=== PATIENT | female | born 1995 ===

== ENCOUNTER 2016-10-31 15:18 | Emergency (ER) | payer OTHER ==
[2016-10-31 15:28] VITALS: BP 108/68; PULSE 83; RESP 16; TEMP 98.1; O2SAT 98
[2016-10-31] MEDS ORDERED: Sodium Chloride 0.9% 1,000 ML IV STA (15:41)
--- NOTE | 2016-10-31 15:43 | ED PDOC ---
HPI: Female Pain Time Seen by Provider: 10/31/16 15:40 Chief Complaint (Nursing): Female Genitourinary Chief Complaint (Provider): vaginal bleeding History Per: Patient Additional Complaint(s): Patient states she has had prolonged vaginal bleeding on and off for about 2 months. Patient states she feels fatigued and has headache. Patient denies any fever or chills. Patient denies any syncopal episodes. Patient has control implant in her right arm for over a year and she states she has always had an irregular cycle. She states she is going through about 3 pads per day. Past Medical History Reviewed: Historical Data, Nursing Documentation, Vital Signs Vital Signs: Last Vital Signs Temp 98.1 F 10/31/16 15:25 Pulse 83 10/31/16 15:25 Resp 16 10/31/16 15:25 BP 108/68 10/31/16 15:25 Pulse Ox 98 10/31/16 15:25 - Medical History PMH: No Chronic Diseases - Surgical History Surgical History: Hernia Repair ((at 5 years old)), Tonsillectomy Other surgeries: eye surgery - Family History Family History: States: No Known Family Hx - Living Arrangements Living Arrangements: With Family - Social History Current smoker - smoking cessation education provided: No Alcohol: None Drugs: Denies - Home Medications Home Medications: Ambulatory Orders Medication Instructions Recorded Ibuprofen [Motrin] 600 mg PO Q6 PRN #15 tab 09/08/16 - Allergies Allergies/Adverse Reactions: Allergies Allergy/AdvReac Type Severity Reaction Status Date / Time No Known Allergies Allergy Verified 09/08/16 19:15 Review of Systems ROS Statement: Except As Marked, All Systems Reviewed And Found Negative Constitutional: Negative for: Fever Cardiovascular: Negative for: Chest Pain Respiratory: Negative for: Cough Gastrointestinal: Negative for: Nausea, Vomiting Genitourinary Female: Positive for: Vaginal Bleeding (for 2 months) Physical Exam - Reviewed Nursing Documentation Reviewed: Yes Vital Signs Reviewed: Yes - Physical Exam Appears: Positive for: Well, Non-toxic, No Acute Distress Head Exam: Positive for: ATRAUMATIC, NORMAL INSPECTION Skin: Negative for: Rash Eye Exam: Positive for: Normal appearance Cardiovascular/Chest: Positive for: Regular Rate, Rhythm Respiratory: Positive for: Normal Breath Sounds Gastrointestinal/Abdominal: Positive for: Normal Exam, Soft. Negative for: Tenderness, Distended, Guarding, Rebound Back: Negative for: L CVA Tenderness, R CVA Tenderness Extremity: Positive for: Normal ROM. Negative for: Pedal Edema Neurologic/Psych: Positive for: Alert, Oriented - Laboratory Results Result Diagrams: 10/31/16 16:00 10/31/16 16:00 Urine POC: Negative Urine dip results: Positive for: Blood (large). Negative for: Leukocyte Esterase, Nitrate, Ketones, Glucose, Bilirubin, Protein - ECG O2 Sat by Pulse Oximetry: 98 Pulse Ox Interpretation: Normal Medical Decision Making Medical Decision Makin21 year old with irregular menses Plan: Urine test Urine dip CBC CMP PT PTT IVF Patient is aware of all diagnostic testing results, all questions answered. Patient was referred to [facility] clinic for follow-up. Disposition - Clinical Impression Clinical Impression: Irregular menses - Patient ED Disposition Is Patient to be Admitted: No Counseled Patient/Family Regarding: Diagnosis, Need For Followup - Disposition Referrals: [facility] [Outside] Disposition: Routine/Home Disposition Time: 17:05 Condition: STABLE Additional Instructions: Follow up with women's clinic. Instructions: Menorrhagia (ED) Print Language: KYRGYZ Results - Lab Results Lab Results: 10/31/16 10/31/16 16:00 16:00 WBC 8.2 RBC 4.31 Hgb 13.4 Hct 38.3 MCV 89.0 D MCH 31.1 H MCHC 34.9 RDW 12.4 Plt Count 255 MPV 8.1 Neut % (Auto) 65.1 Lymph % (Auto) 25.4 [place] % (Auto) 7.0 Eos % (Auto) 1.6 Baso % (Auto) 0.9 Neut # 5.4 Lymph # 2.1 [place] # 0.6 Eos # 0.1 Baso # 0.1 Sodium 139 Potassium 3.9 Chloride 103 Carbon Dioxide 26 Anion Gap 14 BUN 13 Creatinine 0.6 L Est GFR ( Amer) > 60 Est GFR (Non-Af Amer) > 60 Random Glucose 80 Calcium 9.4 Total Bilirubin 0.8 AST 38 H ALT 42 Alkaline Phosphatase 72 Total Protein 8.0 Albumin 4.4 Globulin 3.7 Albumin/Globulin Ratio 1.2
[2016-10-31 16:13] LABS: BASO # 0.1 K/uL (0.0-0.2); BASO % 0.9 % (0.0-2.0); EOS # 0.1 K/uL (0.0-0.7); EOS % 1.6 % (0.0-4.0); HEMATOCRIT 38.3 % (34.0-47.0); LYMPH # 2.1 K/uL (1.0-4.3); LYMPH % 25.4 % (20.0-40.0); MEAN CORPUSCULAR HEMOGLOBIN 31.1 pg (27.0-31.0); MEAN CORPUSCULAR HGB CONC 34.9 g/dL (33.0-37.0); MEAN PLATELET VOLUME 8.1 fl (7.2-11.7); MONO # 0.6 K/uL (0.0-0.8); NEUT # 5.4 K/uL (1.8-7.0); NEUT % 65.1 % (50.0-75.0); RED CELL DISTRIBUTION WIDTH 12.4 % (11.5-14.5); WHITE BLOOD COUNT 8.2 K/uL (4.8-10.8)
[2016-10-31 16:37] LABS: CHLORIDE 103 mmol/L (98-107); POTASSIUM 3.9 MMOL/L (3.6-5.0); SODIUM 139 mmol/l (132-148)
[2016-10-31 16:39] LABS: GFR AFRICAN-AMERICAN > 60
[2016-10-31 16:40] LABS: ALB/GLOB RATIO 1.2 (1.0-2.1); ALKALINE PHOSPHATASE 72 U/L (38-126); ALT/SGPT 42 U/L (9-52); AST/SGOT 38 U/L (14-36); BILIRUBIN,TOTAL 0.8 mg/dl (0.2-1.3); BLOOD UREA NITROGEN 13 mg/dl (7-17); CALCIUM 9.4 mg/dL (8.4-10.2); CARBON DIOXIDE 26 mmol/L (22-30); GLUCOSE,RANDOM 80 mg/dL (65-105)
== END 2016-10-31 18:20 | disposition home or self-care (01) ==
LOC: H.ER 15:18
DX: N92.6 Irregular menstruation, unspecified (principal); R51 Headache